=== PATIENT | female | born 1950 | race Caucasian/White ===

== ENCOUNTER → 2019-08-10 16:41 | Outpatient (CLI) | payer MEDICARE, OTHER, SELFPAY ==
[2019-08-10 17:13] LABS: INR 2.7 (0.9-1.3); Prothrombin Time 30.8 SECONDS (10.1-12.7)
== END ==
PROVIDERS: Family Provider Family Medicine; PCP Family Medicine; Referring Provider Pharmacist; Visit Provider Pharmacist
DX: Z79.01 Long term (current) use of anticoagulants (principal)
CPT/HCPCS: 36415; 85610

== ENCOUNTER 2019-12-08 20:56 | Emergency (ER) | payer MEDICARE, OTHER, SELFPAY ==
[2019-12-08 21:01] VITALS: BP 125/84; PULSE 101; RESP 18; O2SAT 97
[2019-12-08 21:16] LABS: INR 2.5 (0.9-1.3); Prothrombin Time 28.4 SECONDS (10.1-12.7)
--- NOTE | 2019-12-08 21:38 | ED.WOUNDLAC ---
HPI - Wound/Laceration General Chief Complaint: Wound/Laceration Stated Complaint: cut left hand Time Seen by Provider: 12/08/19 21:03 Source: patient Mode of arrival: Ambulatory Limitations: no limitations History of Present Illness HPI narrative: 69-year-old female nonsmoker with history of AFib on Coumadin presents with her and a chief complaint of an accidental laceration on the palm of her left hand 2 days ago while using a sharp knife. She presents today because despite her best efforts it continues to ooze and soak through whenever dressing she attempts to put on. Her tetanus is current. She denies any pain. She denies systemic findings such as dizziness, weakness or lightheadedness. Onset (ago): day(s) Extremity Location: Left: hand Body four view annotation: 1. Place: home Patient tetanus UTD: Yes Context: accidental Associated symptoms: none Treatments prior to arrival: bandage Related Data Home Medications Medication Instructions Recorded Confirmed atorvastatin [Lipitor] 20 mg PO HS #30 tab 12/26/15 buspirone 15 mg PO QDAY #0 tab 12/26/15 cholecalciferol (vitamin D3) 1 tab PO QDAY #0 tab 12/26/15 [Vitamin D3] diltiazem HCl 300 mg PO QDAY #0 cap 12/26/15 hydrochlorothiazide 25 mg PO QDAY #0 tab 12/26/15 metformin [Glucophage XR] 500 mg PO BID #0 12/26/15 metoprolol succinate 100 mg PO QDAY #0 ter 12/26/15 telmisartan 40 mg PO QDAY #0 tab 12/26/15 alprazolam 0.25 mg PO Q8H #0 08/12/16 warfarin [Coumadin] 2.5 mg PO QDAY #0 08/12/16 Previous Rx's Medication Instructions Recorded omeprazole 40 mg OR QAM #30 cap 03/11/16 sucralfate 1 gm PO BID #60 tab 03/11/16 ciprofloxacin HCl [Cipro] 500 mg PO BID #14 tab 08/12/16 Allergies Allergy/AdvReac Type Severity Reaction Status Date / Time captopril [CAPTOPRIL] Allergy Severe COUGH Verified 12/08/19 21:48 meperidine [From DEMEROL] Allergy Intermediate ITCHING Verified 12/08/19 21:48 AND ANXIETY Review of Systems Constitutional Constitutional: Denies chills, Denies fatigue, Denies fever(s), Denies frequent falls, Denies lethargy and Denies weakness Eyes Eyes: Denies change in vision, Denies eye discharge, Denies irritation and Denies loss of vision ENT Ears, Nose, Mouth, and Throat: Denies change in voice, Denies dizziness, Denies neck pain, Denies sore throat and Denies throat swelling Cardiovascular Cardiovascular: Denies chest pain, Denies irregular heart rhythm, Denies lightheadedness, Denies palpitations, Denies dyspnea, Denies dyspnea on exertion and Denies orthopnea Respiratory Respiratory: Denies cough, Denies dyspnea, Denies dyspnea on exertion and Denies wheezing Gastrointestinal Gastrointestinal: Denies abdominal pain, Denies change in bowel habits, Denies diarrhea, Denies nausea and Denies vomiting Musculoskeletal Musculoskeletal: Denies neck pain and Denies numbness Integumentary/Breasts Skin/Breast: Denies pruritus, Denies erythema, Denies rash and Reports wounds Neurologic Neurologic: Denies behavioral changes, Denies confusion, Denies dizziness, Denies frequent falls, Denies loss of vision, Denies numbness and Denies weakness Psychiatric Psychiatric: Denies anxiety, Denies behavioral changes, Denies confusion, Denies depression, Denies homicidal ideation and Denies suicidal ideation Endocrine Endocrine: Denies fatigue, Denies flushing and Denies palpitations Hematologic/Lymphatic Hematologic/Lymphatic: Denies easy bruising Allergic/Immunologic Allergic/Immunologic: Denies urticaria, Denies throat swelling and Denies wheezing Patient History alcohol intake frequency: 0-2 drinks per day Exam Narrative Exam Narrative: GEN: AOx3 and in mild distress EYES: Pupils are equal, round, and reactive to light and accommodation. Extraoccular muscles are intact bilaterally. There is no subconjunctival hemorrhage or exudate. CHEST: Lungs are clear to auscultation bilaterally and free of wheezes, rales, or rhonchi. Heart rate is regular rhythm, there are no murmurs, clicks, rubs, or gallops. There is no chest wall tenderness. ABD: Abdomen is soft and nontender. There is no guarding or rebound. Bowel sounds are normal in all 4 quadrants. There is no mass or organomegaly. EXT: Full painless ROM of all extremities with no loss of sensation or strength. SKIN: 0.5cm x 0.5cm avulsion laceration on left thenar emminence. Slow bleeding easily stopped with pressure. Superficial with skin loss. No muscle exposure. Initial Vital Signs Initial Vital Signs: Vital Signs Pulse Rate 101 H 12/08/19 21:01 Respiratory Rate 18 12/08/19 21:01 Blood Pressure 125/84 12/08/19 21:01 Pulse Oximetry 97 12/08/19 21:01 Procedures Laceration Repair Laceration 1: Site: hand Side (If applicable): left Size (cm): 0.5 Description: other Depth: simple, single layer Local Anesthetic: lidocaine 1% and with epi Amount of anesthesia used (mL): 3 Pre-repair: wound explored and irrigated extensively Skin layer closed with: other (bleeding easily controlled) Size (cm): 4-0 Number of sutures: 1 Course Orders Ordered: ED Orders 12/08/19 21:04 Prothrombin Time INR Stat Vital Signs Vital signs: Vital Signs - 8 hr 12/08/19 21:01 Pulse Rate 101 H Respiratory Rate 18 Blood Pressure 125/84 Pulse Oximetry 97 MDM - Wound/Laceration Lab Data Labs: Lab Results 12/08/19 Range/Units 21:04 PT 28.4 H (10.1-12.7) SECONDS INR 2.5 H (0.9-1.3) Discharge Plan Departure Patient Disposition: Home Clinical Impression: Avulsion of skin Laceration of hand, left Qualifiers: Encounter type: initial encounter Foreign body presence: without foreign body Qualified Code(s): S61.412A - Laceration without foreign body of left hand, initial encounter Discharge Date/Time: 12/08/19 22:20 Instructions: DI for Laceration Repair Activity Restrictions/Additional Instructions: *You have been diagnosed with [left hand avulsion laceration with ongoing bleeding] *What to do: *Continue to take medications as directed *Follow up the [facility] Resource Line, call tomorrow to get established with a provider and let them know were seen in the Emergency Department and we want you to be seen in follow up. *Return to ER if you should have any new, worsening or concerning symptoms Please keep the wound clean and dry to the best of your ability. Please monitor for signs of infection such as redness to the skin or increasing pain. Have the sutures removed by your doctor in about 5 days. If you are unable to get into your doctor, we would be happy to remove the sutures in that same timeframe. Prescriptions: No Action telmisartan 40 MG tablet 40 mg PO QDAY Qty: 0 RF: 0 atorvastatin [Lipitor] 20 MG tablet 20 mg PO HS Qty: 30 RF: 0 metoprolol succinate 100 MG tablet extended release 24 hr 100 mg PO QDAY Qty: 0 RF: 0 diltiazem HCl 300 MG capsule,extended release 24hr 300 mg PO QDAY Qty: 0 RF: 0 hydrochlorothiazide 25 MG tablet 25 mg PO QDAY Qty: 0 RF: 0 metformin [Glucophage XR] 500 MG tablet extended release 24 hr 500 mg PO BID Qty: 0 RF: 0 buspirone 15 MG tablet 15 mg PO QDAY Qty: 0 RF: 0 cholecalciferol (vitamin D3) [Vitamin D3] 2,000 UNIT tablet 1 tab PO QDAY Qty: 0 RF: 0 omeprazole 40 MG capsule,delayed release(DR/EC) 40 mg OR QAM Qty: 30 RF: 0 sucralfate 1 GM tablet 1 gm PO BID Qty: 60 RF: 0 warfarin [Coumadin] 2.5 MG tablet 2.5 mg PO QDAY Qty: 0 RF: 0 alprazolam 0.25 MG tablet 0.25 mg PO Q8H Qty: 0 RF: 0 ciprofloxacin HCl [Cipro] 500 MG tablet 500 mg PO BID Qty: 14 RF: 0 Referrals: [facility] [Outside] Omaira Kc MD [Primary Care Provider] -
[2019-12-08] MEDS: LIDOCAINE 1% W/EPI 30 ML (21:51)
== END 2019-12-08 22:20 | disposition home or self-care (01) ==
PROVIDERS: Emergency Provider Emergency Medicine; Family Provider Family Medicine; PCP Family Medicine
DX: S61.412A Laceration without foreign body of left hand, initial encounter (principal); W26.0XXA Contact with knife, initial encounter; I48.91 Unspecified atrial fibrillation; Z79.01 Long term (current) use of anticoagulants
CPT/HCPCS: 12001; 36415; 85610; 99283

== ENCOUNTER → 2020-05-05 13:19 | Outpatient (CLI) | payer MEDICARE, OTHER, SELFPAY ==
[2020-05-05] MEDS: COVID-19 VACC #1, MRNA(MOD) 100 MCG/0.5 ML VIAL IM (13:24)
== END ==
PROVIDERS: Family Provider Family Medicine; PCP Family Medicine; Visit Provider Internal Medicine
DX: Z23 Encounter for immunization (principal)
CPT/HCPCS: 0011A; 91301

== ENCOUNTER → 2020-06-02 15:59 | Outpatient (CLI) | payer MEDICARE, OTHER, SELFPAY ==
[2020-06-02] MEDS: COVID-19 VACC #2, MRNA(MOD) 100 MCG/0.5 ML VIAL IM (16:04)
== END ==
PROVIDERS: Family Provider Family Medicine; PCP Family Medicine; Visit Provider Internal Medicine
DX: Z23 Encounter for immunization (principal)
CPT/HCPCS: 0012A; 91301

== ENCOUNTER → 2022-01-04 08:15 | Outpatient (CLI) | payer MEDICARE, OTHER, SELFPAY ==
--- NOTE | 2022-01-04 08:20 | DI.RAD.S_ITS ---
PROCEDURE: XR KNEE RT 3V INDICATIONS: KNEE PAIN TECHNIQUE: 3 views of the knee were acquired. COMPARISON: None. FINDINGS: Bones: No acute fractures or dislocations. Severe tricompartmental degenerative changes of the right knee with significant joint space loss of both the medial and lateral femorotibial compartments. Joint space loss is more pronounced over the medial compartment. Prominent marginal osteophytes. Additionally, there is severe medial femorotibial compartment joint space narrowing of the left knee with near [id number] appearance. No suspicious bony lesions. Soft tissues: No joint effusion. No suspicious soft tissue calcifications. IMPRESSION: Right knee without acute osseous abnormalities. Severe tricompartmental degenerative changes of the right knee with significant joint space loss of both the right medial and lateral femorotibial compartments. Advanced degenerative changes of the left knee. Dictated by: Sascha Albarado M.D. on 01/04/2022 at 9:30 Approved by: Sascha Albarado M.D. on 01/04/2022 at 9:32
--- NOTE | 2022-01-04 08:20 | DI.RAD.S_ITS ---
PROCEDURE: XR KNEE LT 3V INDICATIONS: KNEE PAIN TECHNIQUE: 3 views of the knee were acquired. COMPARISON: None. FINDINGS: Bones: No fractures or dislocations. No suspicious bony lesions. Severe tricompartmental degenerative changes of the left knee with near complete joint space loss of the medial femorotibial compartment with [id number] appearance. There is also mild narrowing of the lateral femorotibial compartment. Prominent marginal osteophytes. Mild lateral deviation of the patella. Additionally, there are advanced degenerative changes of the right knee with significant joint space narrowing of both the medial and lateral femorotibial compartments. Soft tissues: No joint effusion. No suspicious soft tissue calcifications. IMPRESSION: Left knee without acute fracture or dislocation. Severe tricompartmental osteoarthrosis of the left knee with near complete joint space loss of the medial femorotibial compartment. Advanced degenerative changes of the right knee. Dictated by: Sascha Albarado M.D. on 01/04/2022 at 9:32 Approved by: Sascha Albarado M.D. on 01/04/2022 at 9:34
== END ==
PROVIDERS: Family Provider Family Medicine; PCP Internal Medicine; Referring Provider Internal Medicine; Visit Provider Internal Medicine
DX: M17.12 Unilateral primary osteoarthritis, left knee (principal); M25.561 Pain in right knee; M25.562 Pain in left knee; G89.29 Other chronic pain
CPT/HCPCS: 73562

== ENCOUNTER → 2023-04-14 09:27 | Outpatient (CLI) | payer MEDICARE, SELFPAY ==
[2023-04-14 11:17] LABS: Add Manual Diff / Slide Review NO; Basophils Absolute Auto 100 /uL (0-100); Basophils Percent Auto 1.1 % (0-2); Eosinophils Absolute Auto 100 /uL (0-450); Eosinophils Percent Auto 1.5 % (2-4); Hematocrit 39.2 % (36-46); Lymphocytes Absolute Auto 1800 /uL (1100-4500); Lymphocytes Percent Auto 24.2 % (25-40); Mean Corpuscular HGB Conc 33.3 % (30-36); Mean Corpuscular Hemoglobin 28.1 PG (26-34); Mean Corpuscular Volume 84.5 fL (80-100); Monocytes Absolute Auto 600 /uL (0-900); Monocytes Percent Auto 8.8 % (3-14); Neutrophils Absolute Auto 4800 /uL (1500-7000); Neutrophils Percent Auto 64.4 % (50-75); Platelet Count 300 X10^3/uL (150-400); Red Blood Cell Count 4.63 X10^6/uL (4.0-5.2); Red Cell Distribution Width 16.1 % (11.6-14.8); White Blood Cell Count 7.4 X10^3/uL (4.5-11.0)
[2023-04-14 11:35] LABS: Hemoglobin A1C% w Est Avg Glu 5.9 % (4.0-6.0)
[2023-04-14 11:39] LABS: INR 3.8 (0.9-1.3); Prothrombin Time 44.1 SECONDS (9.4-12.5)
[2023-04-14 11:40] LABS: Alanine Aminotransferase 24 IU/L (<35); Albumin 4.2 g/dL (3.5-5.0); Albumin Globulin Ratio 1.4 (1.0-2.8); Alkaline Phosphatase 60 U/L (38-126); Aspartate Aminotransferase 25 IU/L (14-36); BUN Creatinine Ratio 30.9 (6-22); Bilirubin Total 0.7 mg/dL (0.2-1.3); Blood Urea Nitrogen 25 mg/dL (7-17); Carbon Dioxide 28 mmol/L (22-32); Chloride 99 mmol/L (98-107); Cholesterol 140 mg/dL (140-199); Estimated Glomerular Filt Rate > 60 mL/min (>60); Globulin 3.1 g/dL (1.7-4.1); Glucose 111 mg/dL (80-110); HDL Cholesterol 36 mg/dL (40-60); HEMOLYSIS < 15 (0-50); LDL Cholesterol Calculated 79 mg/dL (<100); Potassium 3.9 mmol/L (3.4-5.1); Sodium 137 mmol/L (137-145); Total Protein 7.3 g/dL (6.3-8.2); Triglycerides 127 mg/dL (35-150); Uric Acid 6.1 mg/dL (2.5-6.2)
[2023-04-14 12:08] LABS: TSH w/ Reflex to FT4 1.18 uIU/mL (0.47-4.68)
[2023-04-14 12:14] LABS: Ferritin 28 ng/mL (11-264)
[2023-04-16 14:12] LABS: Insulin Level Total 22.5 uIU/mL (2.6-24.9)
== END ==
PROVIDERS: Family Provider Family Medicine; PCP Family Medicine; Referring Provider Family Medicine; Visit Provider Family Medicine
DX: I48.91 Unspecified atrial fibrillation (principal); R73.9 Hyperglycemia, unspecified; R53.83 Other fatigue; E55.9 Vitamin D deficiency, unspecified; M10.9 Gout, unspecified
CPT/HCPCS: 36415; 80053; 80061; 82306; 82728; 83036; 83525; 84443; 84550; 85025; 85610; 86140

== ENCOUNTER → 2023-07-16 10:24 | Outpatient (CLI) | payer MEDICARE, SELFPAY | PROVIDERS: Family Provider Family Medicine; PCP Family Medicine; Visit Provider Family Medicine | DX: R22.31 Localized swelling, mass and lump, right upper limb (principal) | CPT/HCPCS: 87070; 87075; 87205 ==

== ENCOUNTER → 2023-07-24 08:04 | Outpatient (CLI) | payer MEDICARE, SELFPAY ==
--- NOTE | 2023-07-24 | DI.ECHO.S_ITS ---
[facility] : : [address] : : [place] : : [id number] : : Phone: [phone] Echocardiogram Report + + :Name: BASSEM COHEN Study Date: 07/24/2023 Height: 65 in : :[facility] ReadingLocation: Weight: 245 lb : : Gender: Female BSA: 2.2 m2 : :: 1950 Age: 73 yrs BP: 114/71 mmHg: :Reason For Study: ATRIAL FIBRILLATION : :Ordering Physician: ANJEL, : :DAMIÁN Performed By: Geraldine Sun : :Referring: DAMIÁN FRENCH : + + Interpretation Summary The left ventricle is normal in size and wall thickness. Left ventricular systolic function appears normal without focal wall motion abnormalities. The ejection fraction is estimated to be 55-60%. The right ventricle is borderline dilated. The right ventricular systolic function is normal. The right ventricular systolic pressure is estimated to be at least 35 mmHg based on an estimated right atrial pressure of 3 mm Hg. There is moderate biatrial enlargement. There is mild mitral regurgitation. There is mild aortic regurgitation. The aortic root is borderline dilated. The ascending aorta is mildly enlarged. Procedure: A two-dimensional transthoracic echocardiogram with color flow and Doppler was performed. The study quality was technically adequate. There is no prior echocardiogram noted for this patient. The patient was in atrial fibrillation with heart rates between 79-85 bpm during the exam. Left Ventricle: The left ventricle is normal in size and wall thickness. Left ventricular systolic function appears normal without focal wall motion abnormalities. The ejection fraction is estimated to be 55-60%. Diastolic function could not be accurately assessed due to atrial fibrillation. Right Ventricle: The right ventricle is borderline dilated. The right ventricular systolic function is normal. Atria: There is moderate biatrial enlargement. The right atrium is moderately dilated. There is no Doppler evidence for an interatrial shunt. Mitral Valve: The mitral valve leaflets appear mildly thickened, but open well. There is mild mitral regurgitation. Aortic Valve: The aortic valve is mildly calcified. The aortic valve is trileaflet. There is no aortic valve stenosis. There is mild aortic regurgitation. Tricuspid Valve: The tricuspid valve is normal in structure and function. There is mild tricuspid regurgitation. The right ventricular systolic pressure is estimated to be at least 35 mmHg based on an estimated right atrial pressure of 3 mm Hg. Pulmonic Valve: The pulmonic valve leaflets are thin and pliable; valve motion is normal. There is mild pulmonic regurgitation. Great Vessels: The aortic root is borderline dilated. The ascending aorta is mildly enlarged. The IVC is of normal diameter and collapses greater than 50% with a sniff. This suggests a low right atrial pressure of 3 mm Hg. Pericardium/ Pleura There is no pericardial effusion. There is no pleural effusion. MMode/2D Measurements & Calculations EPSS: 0.61 cm LVOT diam: 2.1 cm Ao root diam: 4.0 cm asc Aorta Diam: 3.9 cm Ao Arch Diam (Prox Trans): 3.2 cm LA A2 area: 32.1 cm2 RA long axis: 7.5 cm LA A4 area: 27.2 cm2 RA area: 30.1 cm2 LA length (vol): 7.0 cm RA vol: 102.7 ml LA vol: 106.5 ml RA : 47.6 ml/m2 LA vol index: 49.4 ml/m2 IVC diam: 1.9 cm RVD1 (basal): 4.0 cm TAPSE: 1.7 cm Doppler Measurements & Calculations Ao V2 max: 139.4 cm/sec LVOT Max Erik: 91.5 cm/sec Ao V2 mean: 100.9 cm/sec LV V1 max P.3 mmHg Ao max P.8 mmHg LV V1 VTI: 19.6 cm Ao mean P.4 mmHg MICHAEL(I,D): 2.7 cm2 Ao V2 VTI: 26.5 cm MICHAEL(V,D): 2.4 cm2 sev ratio: 0.74 MICHAEL indexed to BSA (cm^2/m^2): 1.2 MV E max erik: 99.1 cm/sec TR max erik: 283.4 cm/sec MV A max erik: 1.2 cm/sec TR max P.1 mmHg MV E/A: 86.2 PA V2 max: 110.7 cm/sec Med Peak E' Erik: 8.8 cm/sec PA V2 mean: 74.7 cm/sec E/E' med: 11.3 PA mean P.5 mmHg Lat Peak E' Erik: 12.8 cm/sec PA pr(Accel): 39.6 mmHg E/E' lat: 7.7 E/e' average: 9.5 MV dec time: 0.18 sec SV(LVOT): 70.7 ml Reading Physician:02:30 PM
== END ==
LOC: ECHO 08:05
PROVIDERS: Family Provider Family Medicine; PCP Family Medicine; Referring Provider Internal Medicine Cardiovascular Disease; Visit Provider Internal Medicine Cardiovascular Disease
DX: I08.3 Combined rheumatic disorders of mitral, aortic and tricuspid valves (principal); I48.91 Unspecified atrial fibrillation; I77.89 Other specified disorders of arteries and arterioles
CPT/HCPCS: 93306

== ENCOUNTER → 2024-02-20 15:01 | Outpatient (CLI) | payer MEDICARE, SELFPAY ==
--- NOTE | 2024-02-20 15:02 | DI.MG.S_ITS ---
BILATERAL DIGITAL SCREENING MAMMOGRAM 3D/2D WITH CAD: 02/20/2024 CLINICAL: Routine screening. Family history of breast cancer. Comparison is made to exams dated: 10/23/2020 mammogram, 08/13/2017 mammogram, and 07/17/2015 mammogram - Outside facility. The breasts are almost entirely fatty (category a/<25% glandular tissue). Current study was also evaluated with a Computer Aided Detection (CAD) system. There are benign post operative findings in both breasts. No significant masses, calcifications, or other findings are seen in either breast. There has been no significant interval change. IMPRESSION: BENIGN There is no mammographic evidence of malignancy. A 1 year screening mammogram is recommended. Based on the Tyrer Cuzick model (a risk assessment model) the patient's lifetime risk is 5.7% and her 10 year risk is 3.9%. According to the ACR, ACS, and NCCN guidelines, an annual breast MRI exam along with mammogram is recommended if the patient's lifetime risk is 20% or greater. This exam was interpreted at Station ID: [id number]. NOTE: For mammograms, a report in lay terms will be sent to the patient. Approximately 15% of breast malignancies will not be visualized mammographically. In the management of a palpable breast mass, a negative mammogram must not discourage biopsy of a clinically suspicious lesion. Electronically Signed By: Yuki Anthony M.D., Ph.D. edi/melony:02/21/2024 00:38:18 letter sent: Normal Exam ACR BI-RADS Category 2: Benign
== END ==
PROVIDERS: Family Provider Family Medicine; PCP Family Medicine; Referring Provider Family Medicine; Visit Provider Family Medicine
DX: Z12.31 Encounter for screening mammogram for malignant neoplasm of breast (principal); R92.313 Mammographic fatty tissue density, bilateral breasts; Z80.3 Family history of malignant neoplasm of breast
CPT/HCPCS: 77063; 77067

== ENCOUNTER → 2024-03-12 10:48 | Outpatient (CLI) | payer MEDICARE, SELFPAY | PROVIDERS: Family Provider Family Medicine; PCP Family Medicine; Referring Provider Family Medicine; Visit Provider Family Medicine | DX: E66.01 Morbid (severe) obesity due to excess calories (principal); M85.89 Other specified disorders of bone density and structure, multiple sites; Z68.41 Body mass index [BMI] 40.0-44.9, adult ==

== ENCOUNTER → 2024-03-15 12:57 | Outpatient (CLI) | payer MEDICARE, SELFPAY ==
--- NOTE | 2024-03-15 12:57 | DI.RAD.S_ITS ---
PROCEDURE: XR DEXA AXIAL SKELETON INDICATIONS: Bone density screening COMPARISON: None. FINDINGS: Lumbar Spine (L1-L2): Bone mineral density 1.219 g/cm2, T score 2.2. Left Hip: Bone mineral density 0.732 g/cm2, T score -1.7. Left Femoral Neck: Bone mineral density 0.598 g/cm2, T score -2.3. Left Forearm: Bone mineral density 0.618 g/cm2, T score -1.3. Fracture Risk Calculation (when applicable): 10-year fracture risk of a major osteoporotic fracture 12% and of a hip fracture 2.7%. (T score greater or equal to -1.0 to: NORMAL) (T score from -1.1 to -2.4: OSTEOPENIA) (T score less than or equal to -2.5: OSTEOPOROSIS) IMPRESSION: 1. By WHO criteria, patient has osteopenia. 2. 10-year fracture risk of a major osteoporotic fracture 12% and of a hip fracture 2.7%. Follow-up guidelines as follows: Osteoporosis: Consider a repeat DEXA and Vertebral Fracture Assessment (VFA) exam in 2 years or sooner if medically necessary, to reassess this patient's status. Osteopenia: Consider a repeat DEXA in 2-3 years to reassess this patient's status, or if there is a new clinical indication. Normal: Consider a repeat DEXA in 5 years or sooner, or if there is a new clinical indication. All treatment decisions require clinical judgment and consideration of individual patient factors, including patient preferences, comorbidities, previous drug use, risk factors not captured in the FRAX model (e.g., frailty, falls, vitamin D deficiency, increased bone turnover, interval significant decline in bone density ) and possible under- or over-estimation of fracture risk by FRAX. In addition, the NOF Guide recommends that FDA-approved medical therapies be considered in postmenopausal women and men age >= 50 years with a: * Hip or vertebral (clinical or morphometric) fracture * T-score of <=-2.5 at the spine or hip * Ten-year fracture probability by FRAX of >= 3% for hip fracture or >=20% for major osteoporotic fracture. People with diagnosed cases of osteoporosis or at high risk for fracture should have regular bone mineral density tests. For patients eligible for Medicare, routine testing is allowed once every 2 years. The testing frequency can be increased to one year for patients who have rapidly progressing disease, those who are receiving or discontinuing medical therapy to restore bone mass, or have additional risk factors. Approved by: Jero Hernandez M.D. on 03/15/2024 at 16:49
== END ==
LOC: RAD 12:57
PROVIDERS: Family Provider Family Medicine; PCP Family Medicine; Referring Provider Family Medicine; Visit Provider Family Medicine
DX: M85.89 Other specified disorders of bone density and structure, multiple sites (principal)
CPT/HCPCS: 77080; 77081

== ENCOUNTER → 2024-04-19 09:59 | Outpatient (CLI) | payer MEDICARE, SELFPAY ==
[2024-04-19 11:15] LABS: Hematocrit 38.3 % (36-46); Hemoglobin 12.6 g/dL (12.0-16.0); Mean Corpuscular HGB Conc 32.9 % (30-36); Mean Corpuscular Hemoglobin 27.7 PG (26-34); Mean Corpuscular Volume 84.3 fL (80-100); Platelet Count 343 X10^3/uL (150-400); Red Blood Cell Count 4.54 X10^6/uL (4.0-5.2); Red Cell Distribution Width 18.8 % (11.6-14.8); White Blood Cell Count 8.6 X10^3/uL (4.5-11.0)
[2024-04-19 11:36] LABS: Hemoglobin A1C% w Est Avg Glu 5.3 % (4.0-6.0)
[2024-04-19 11:44] LABS: Alanine Aminotransferase 30 IU/L (<35); Albumin 4.2 g/dL (3.5-5.0); Albumin Globulin Ratio 1.8 (1.0-2.8); Alkaline Phosphatase 75 U/L (38-126); Aspartate Aminotransferase 25 IU/L (14-36); BUN Creatinine Ratio 30.5 (6-22); Bilirubin Total 0.8 mg/dL (0.2-1.3); Blood Urea Nitrogen 25 mg/dL (7-17); Calcium 9.5 mg/dL (8.4-10.2); Carbon Dioxide 28 mmol/L (22-32); Chloride 100 mmol/L (98-107); Cholesterol 143 mg/dL (140-199); Estimated Glomerular Filt Rate > 60 mL/min (>60); Globulin 2.3 g/dL (1.7-4.1); Glucose 92 mg/dL (80-110); HDL Cholesterol 47 mg/dL (40-60); HEMOLYSIS < 15 (0-50); LDL Cholesterol Calculated 66 mg/dL (<100); Sodium 137 mmol/L (137-145); Total Protein 6.5 g/dL (6.3-8.2); Triglycerides 152 mg/dL (35-150); Uric Acid 4.8 mg/dL (2.5-6.2)
[2024-04-19 12:11] LABS: TSH w/ Reflex to FT4 1.75 uIU/mL (0.47-4.68)
[2024-04-19 12:17] LABS: Ferritin 45 ng/mL (11-264)
[2024-04-20 04:36] LABS: CRP, High Sensitivity 1.21 mg/L (0.00-3.00)
[2024-04-20 16:08] LABS: Insulin Level Total 13.7 uIU/mL (2.6-24.9)
== END ==
PROVIDERS: Family Provider Family Medicine; PCP Family Medicine; Referring Provider Family Medicine; Visit Provider Family Medicine
DX: Z51.81 Encounter for therapeutic drug level monitoring (principal); R73.03 Prediabetes; I48.91 Unspecified atrial fibrillation; E66.01 Morbid (severe) obesity due to excess calories; I10 Essential (primary) hypertension; M10.9 Gout, unspecified; Z79.01 Long term (current) use of anticoagulants
CPT/HCPCS: 36415; 80053; 80061; 82728; 83036; 83525; 84443; 84550; 85027; 86140

== ENCOUNTER 2024-05-08 11:07 | Emergency (ER) | payer MEDICARE, SELFPAY ==
[2024-05-08 11:11] VITALS: BP 142/82; PULSE 93; RESP 18; TEMP 36.6; O2SAT 98; BMI 40.5
--- NOTE | 2024-05-08 11:23 | ED_ITS ---
<Statement entered by Chan Peterson DO - 05/08/24 15:13> Dr. Peterson: I was immediately available in the department for consultation. I did not actually see the patient. HPI - Wound/Laceration General Chief Complaint: Wound/Laceration Stated Complaint: car door hit leg bleeding, on blood thinners Time Seen by Provider: 05/08/24 11:15 Source: patient Mode of arrival: Ambulatory History of Present Illness HPI narrative: Ms. Perez is a very pleasant 73-year-old female past medical history of AFib anticoagulated on warfarin who presents to the emergency department for a left lower leg laceration that occurred just prior to arrival. Patient states she was rushing when she accidentally cut her lateral left lower leg on her car door while closing it. She has about a 5 cm laceration on the left lower extremity, bleeding is controlled at this time as patient used tape and gauze at home and immediately came to the emergency department. She denies any other injuries or pain. States that she is not up-to-date on her tetanus shot and will need it today. Related Data Home Medications Medication Instructions Recorded Confirmed cholecalciferol (vitamin D3) 50 1 tab PO QDAY #0 tabs 12/26/15 04/29/24 mcg (2,000 unit) tablet (Vitamin D3) coenzyme Q10 100 mg capsule 100 mg PO DAILY 04/29/24 04/29/24 magnesium chelate, malate mg PO 04/29/24 04/29/24 urolithin A PO 04/29/24 04/29/24 Previous Rx's Medication Instructions Recorded metoprolol succinate 100 mg 100 mg PO BID #180 tabs 09/29/23 tablet,extended release 24 hr metoprolol succinate 50 mg 50 mg PO BID #180 tabs 09/29/23 tablet,extended release 24 hr omeprazole 20 mg capsule,delayed 20 mg PO DAILY #90 caps 09/29/23 release rosuvastatin 40 mg tablet 40 mg PO DAILY #90 tabs 09/29/23 telmisartan 40 mg tablet 40 mg PO QDAY #90 tabs 09/29/23 warfarin 2.5 mg tablet 2.5 mg PO 4XW #48 tabs 10/02/23 warfarin 5 mg tablet 5 mg PO 3XW #36 tabs 10/02/23 allopurinol 300 mg tablet 300 mg PO DAILY #90 tabs 12/05/23 semaglutide 2 mg/dose (8 mg/3 mL) 2 mg (0.75 mL) SUBCUT QWEEK #9 mL 02/27/24 subcutaneous pen injector buspirone 15 mg tablet 15 mg PO QDAY #90 tabs 03/08/24 diltiazem HCl 300 mg 300 mg PO QDAY #90 caps 03/08/24 capsule,extended release 24 hr hydrochlorothiazide 25 mg tablet 25 mg PO QDAY #90 tabs 03/08/24 metformin 500 mg tablet,extended 500 mg PO DAILY #90 tabs 05/05/24 release 24 hr Allergies Allergy/AdvReac Type Severity Reaction Status Date / Time meperidine [From DEMEROL] Allergy Intermediate ITCHING Verified 04/29/24 15:29 AND ANXIETY ciprofloxacin [From Cipro] AdvReac Severe pain Verified 04/29/24 15:29 captopril [CAPTOPRIL] AdvReac Mild COUGH Verified 04/29/24 15:29 Review of Systems Review of Systems ROS Unobtainable: All systems reviewed & are unremarkable except as noted in HPI and below Patient History Medical History Osteoarthritis of right hip Osteoarthritis of knees, bilateral Gout History of GI bleed (~2015) Essential hypertension Obesity, Class III, BMI 40-49.9 (morbid obesity) Atrial fibrillation with RVR Social History Smoking Status: Former smoker Tobacco: How many years used: 20 alcohol intake: current (1 drink per month ) substance use type: marijuana (cannabis gummies and vape ) Smoking Status: Former smoker tobacco type: vaping alcohol intake frequency: 0-2 drinks per day Exam Narrative Exam Narrative: GENERAL: 73 year old patient appears stated age. Well-developed patient, in no acute distress. HEAD: Atraumatic. Normocephalic. CARDIOVASCULAR: Regular rate. Strong DP and PT pulses bilaterally. Brisk capillary refill on the toes. RESPIRATORY: ?Nonlabored respirations. ?Speaking in clear, full sentences. EXTREMITIES: Approximately 5 cm curved laceration on the left anterior lateral angel. Minimal bleeding on exam. No obvious foreign bodies or contamination. No tenderness to palpation of the anterior left tibia. NEURO: AOx3. ?Clear speech. ?Moves all 4 extremities appropriately. Sensation intact to light touch distal and proximal to the wound. SKIN: No rash or erythema of visible areas except for laceration on LLE described above. Initial Vital Signs Initial Vital Signs: Vital Signs Temperature 98 F 05/08/24 11:11 Pulse Rate 93 H 05/08/24 11:11 Respiratory Rate 18 05/08/24 11:11 Blood Pressure 142/82 H 05/08/24 11:11 Pulse Oximetry 98 05/08/24 11:11 Oxygen Delivery Method Room Air 05/08/24 11:11 Procedures Laceration Repair Laceration 1: Time of procedure: 11:15 Site: lower extremity Side (If applicable): left Size (cm): 5 Description: linear (semi [place]) Depth: simple, single layer Local Anesthetic: lidocaine 1% and with epi Amount of anesthesia used (mL): 7 Pre-repair: wound explored, irrigated extensively (cleansed with betadine) and deep structures intact Skin layer closed with: nylon Skin layer suture size: 4-0 Number of sutures: 9 Technique: simple, interrupted Course Orders Ordered: Discontinued Medications Bacitracin (Bacitracin Oint 0.9 Gm Pckt) 1 applic TOP NOW ONE Stop: 05/08/24 11:57 Last Admin: 05/08/24 11:59 Dose: 1 applic Documented By: ABDIEL Diphtheria/Tetanus/Acell Pertussis (Tet,Diph,Pertuss(Acell),Vac/Pf 0.5 Ml Syringe) 0.5 ml IM .ONCE ONE Stop: 05/08/24 11:23 Last Admin: 05/08/24 11:27 Dose: 0.5 ml Documented By: ABDIEL Lidocaine/Epinephrine (Lidocaine 1% W/Epi 20ml) 10 ml INJ INTRA-OP ONE Stop: 05/08/24 11:23 Last Admin: 05/08/24 11:27 Dose: 10 ml Documented By: ABDIEL Vital Signs Vital signs: Vital Signs - 8 hr 05/08/24 11:11 Temperature 98 F Pulse Rate 93 H Respiratory Rate 18 Blood Pressure 142/82 H Pulse Oximetry 98 Oxygen Delivery Method Room Air MDM - Wound/Laceration Medical Records Attestation: I reviewed the patient's medical records. MDM Narrative Medical decision making narrative: 73-year-old female past medical history of AFib anticoagulated on warfarin who presents to the emergency department for a left lower leg laceration that occurred just prior to arrival. Differential diagnosis includes but is not limited to laceration, flap, avulsion, bleeding on anticoagulation, etc. On exam the patient is in no acute distress, nontoxic appearing, vital signs appropriate. She has a 5 cm laceration on the left lower extremity. She is agreeable to clothing worker with lidocaine and epinephrine, cleansing irrigation and suture repair. We will update Tdap at this time. Patient tolerated laceration repair extremely well, wound was cleansed extensively irrigated with diluted Betadine, repaired using 9 simple interrupted sutures. Wound was covered with bacitracin and a nonadherent dressing. Advised sutures be removed in 8-10 days, discussed signs and symptoms of wound infection to return to the emergency department immediately for. Discussed proper wound care. Patient verbalized understanding of all information and is agreeable to the plan, her is here to drive her home, she is stable for discharge home. Discharge Plan Departure Patient Disposition: Home Clinical Impression: Laceration of left leg Qualifiers: Encounter type: initial encounter Qualified Code(s): S81.812A - Laceration without foreign body, left lower leg, initial encounter Instructions: DI for Laceration Repair Activity Restrictions/Additional Instructions: Today you had a laceration to your left lower leg. We have placed 9 sutures. They need to be removed in 8-10 days. You may do this in your doctor's office, the [id number], or here if necessary. Please keep the dressing on your wound clean, dry, and intact for the next 24 hours. After this time, you may remove the dressing and gently clean the wound with soap and water, then pat dry. Keep the wound clean and covered. Avoid soaking the wound in any water such as a bath, pool, or the ocean. If you develop any signs of wound infection such as increased redness, pus drain age, streaking redness, or fevers, please return to the ER immediately for evaluation. Once sutures are removed and the wound has healed, apply sunscreen daily to reduce the appearance of scars. We updated your tetanus shot today. (If you do not have a PCP you can call [phone]. ?to schedule an appointment with an [facility] Primary Care Provider) IF YOU DEVELOP ANY NEW OR WORSENING SYMPTOMS, RETURN TO THE ER! Please read the attached instructions, they highlight more specific treatments and interventions for you at home. Thank you for letting me participate in your care, Lisa Rae PA-C Prescriptions: No Action cholecalciferol (vitamin D3) [Vitamin D3] 2,000 UNIT tablet 1 tab PO QDAY Qty: 0 metoprolol succinate 50 mg tablet extended release 24 hr 50 mg PO BID Qty: 180 1RF telmisartan 40 mg tablet 40 mg PO QDAY Qty: 90 1RF omeprazole 20 mg capsule,delayed release(DR/EC) 20 mg PO DAILY Qty: 90 1RF rosuvastatin 40 mg tablet 40 mg PO DAILY Qty: 90 1RF metoprolol succinate 100 mg tablet extended release 24 hr 100 mg PO BID Qty: 180 1RF warfarin 5 mg tablet 5 mg PO 3XW Qty: 36 3RF Protocol: Dose Management Condition: Friday Dose/Route: 2.5 mg Instruction: 1 x 2.5 mg tablet Condition: Friday Dose/Route: 5 mg Instruction: 1 x 5 mg tablet Condition: Friday Dose/Route: 2.5 mg Instruction: 1 x 2.5 mg tablet Condition: Friday Dose/Route: 2.5 mg Instruction: 1 x 2.5 mg tablet Condition: Dose/Route: 5 mg Instruction: 1 x 5 mg tablet Condition: Friday Dose/Route: 2.5 mg Instruction: 1 x 2.5 mg tablet Condition: Friday Dose/Route: 5 mg Instruction: 1 x 5 mg tablet Protocol Text: Adjustment Start Date: Friday04/12/24 INR Value: 3.2 INR Date: 04/12/24 Recheck Date: 05/10/24 Rx Instructions: Take 1 tablet (5mg) total on Friday, and Friday; or as directed. warfarin 2.5 mg tablet 2.5 mg PO 4XW Qty: 48 3RF Protocol: Dose Management Condition: Friday Dose/Route: 2.5 mg Instruction: 1 x 2.5 mg tablet Condition: Friday Dose/Route: 5 mg Instruction: 1 x 5 mg tablet Condition: Friday Dose/Route: 2.5 mg Instruction: 1 x 2.5 mg tablet Condition: Friday Dose/Route: 2.5 mg Instruction: 1 x 2.5 mg tablet Condition: Dose/Route: 5 mg Instruction: 1 x 5 mg tablet Condition: Friday Dose/Route: 2.5 mg Instruction: 1 x 2.5 mg tablet Condition: Friday Dose/Route: 5 mg Instruction: 1 x 5 mg tablet Protocol Text: Adjustment Start Date: Friday04/12/24 INR Value: 3.2 INR Date: 04/12/24 Recheck Date: 05/10/24 Rx Instructions: Take 1 tablet (2.5mg) total on Friday, Friday, Friday and Friday; or as directed. allopurinol 300 mg tablet 300 mg PO DAILY Qty: 90 1RF semaglutide 2 mg/dose (8 mg/3 mL) pen injector 2 mg SUBCUT QWEEK Qty: 9 3RF buspirone 15 mg tablet 15 mg PO QDAY Qty: 90 1RF hydrochlorothiazide 25 mg tablet 25 mg PO QDAY Qty: 90 1RF diltiazem HCl 300 mg capsule,extended release 24hr 300 mg PO QDAY Qty: 90 1RF metformin 500 mg tablet extended release 24 hr 500 mg PO DAILY Qty: 90 1RF magnesium chelate, malate 125 mg magnesium capsule PO urolithin A PO coenzyme Q10 100 mg capsule 100 mg PO DAILY Referrals: Jennifer Avilez DO [Primary Care Provider] - Stand Alone Forms: Patient Portal/API/Survey
[2024-05-08] MEDS: TET,DIPH,PERTUSS(ACELL),VAC/PF 0.5 ML SYRINGE IM (11:27)
[2024-05-08] MEDS: LIDOCAINE 1% W/EPI 20ML 10 ML INJ (11:27)
[2024-05-08] MEDS: BACITRACIN OINT 0.9 GM PCKT 1 APPLIC TOP (11:59)
== END 2024-05-08 12:15 | disposition home or self-care (01) ==
PROVIDERS: Emergency Provider Physician Assistant; Family Provider Family Medicine; PCP Family Medicine
DX: S81.812A Laceration without foreign body, left lower leg, initial encounter (principal); I48.91 Unspecified atrial fibrillation; W26.8XXA Contact with other sharp object(s), not elsewhere classified, initial encounter; Z79.01 Long term (current) use of anticoagulants; Z23 Encounter for immunization
CPT/HCPCS: 12002; 90471; 99284; 90715

== ENCOUNTER 2024-09-09 15:10 | Emergency (ER) | payer MEDICARE, SELFPAY ==
[2024-09-09 15:26] VITALS: BP 126/59; PULSE 69; RESP 12; TEMP 36.6; O2SAT 94; BMI 41.1
--- NOTE | 2024-09-09 15:45 | PC.NURSE ---
Pressure dressing applied to knee, soaked dressing removed that patient had in place from home.
--- NOTE | 2024-09-09 16:11 | DI.RAD.S_ITS ---
PROCEDURE: XR KNEE LT 3V INDICATIONS: fall; lac bleeding on blood thinners TECHNIQUE: 3 views of the knee were acquired. COMPARISON: [facility], CR, XR KNEE LT 3V, 01/04/2022, 8:23. FINDINGS: Bones: No fractures or dislocations. No suspicious bony lesions. There is again seen moderate to severe degenerative disease in the medial and lateral compartments and mild degenerative disease in the patellofemoral compartment. No significant joint effusion. Soft tissues: No joint effusion. No suspicious soft tissue calcifications. IMPRESSION: Degenerative changes, no focal osseous lesion seen. Dictated by: Oskar Renee M.D. on 09/09/2024 at 16:52 Approved by: Oskar Renee M.D. on 09/09/2024 at 16:53
--- NOTE | 2024-09-09 16:15 | ED.WOUNDLAC ---
HPI - Wound/Laceration <Lisa Rae PA-C - Last Filed: 09/09/24 18:30> General Chief Complaint: Wound/Laceration Stated Complaint: fell on Lt knee, blood thinners Time Seen by Provider: 09/09/24 15:59 Source: patient and family Mode of arrival: Wheelchair History of Present Illness HPI narrative: Ms. Perez is a pleasant 74-year-old female with a past medical history of AFib on Coumadin, hypertension, prediabetes who presents to the emergency department for a left knee laceration that occurred prior to arrival. Tdap was updated 05/08/2024. Patient states she was at home, tripped on a cord and a belly flop down onto the ground hitting her left knee on the hardwood. She developed an immediate skin tear of the left knee with constant oozing of blood, no pulsatile bleeding. She denies any pain, did not hit her head. States that her left shoulder is feeling sore however this is chronic for her. Denies head trauma, LOC, vomiting. She ambulates independently, denies pain of the knee. Related Data Home Medications ?Medication ?Instructions ?Recorded ?Confirmed cholecalciferol (vitamin D3) 50 1 tab PO QDAY #0 tabs 12/26/15 08/03/24 mcg (2,000 unit) tablet (Vitamin D3) coenzyme Q10 100 mg capsule 100 mg PO DAILY 04/29/24 08/03/24 magnesium chelate, malate mg PO 04/29/24 08/03/24 urolithin A PO 04/29/24 08/03/24 Previous Rx's ?Medication ?Instructions ?Recorded warfarin 5 mg tablet 5 mg PO 3XW #36 tabs 10/02/23 semaglutide 2 mg/dose (8 mg/3 mL) 2 mg (0.75 mL) SUBCUT QWEEK #9 mL 02/27/24 subcutaneous pen injector diltiazem HCl 300 mg 300 mg PO QDAY #90 caps 03/08/24 capsule,extended release 24 hr metformin 500 mg tablet,extended 500 mg PO DAILY #90 tabs 05/05/24 release 24 hr telmisartan 40 mg tablet 40 mg PO QDAY #90 tabs 05/17/24 metoprolol succinate 100 mg 100 mg PO BID #180 tabs 03/03/25 tablet,extended release 24 hr metoprolol succinate 50 mg 50 mg PO BID #180 tabs 06/07/24 tablet,extended release 24 hr omeprazole 20 mg capsule,delayed 20 mg PO DAILY #90 caps 06/07/24 release rosuvastatin 40 mg tablet 40 mg PO DAILY #90 tabs 06/07/24 allopurinol 300 mg tablet 300 mg PO DAILY #30 tabs 07/23/24 progesterone micronized 100 mg 100 mg PO BEDTIME #90 caps 08/03/24 capsule warfarin 2.5 mg tablet 2.5 mg PO 4XW #48 tabs 08/10/24 buspirone 15 mg tablet 15 mg PO QDAY #90 tabs 08/27/24 hydrochlorothiazide 25 mg tablet 25 mg PO QDAY #90 tabs 08/27/24 hydrocodone 5 mg-acetaminophen 325 1 tab PO Q4-6H PRN pain #10 tabs 09/09/24 mg tablet Allergies Allergy/AdvReac Type Severity Reaction Status Date / Time meperidine (From DEMEROL) Allergy Intermediate ITCHING Verified 09/09/24 15:34 AND ANXIETY ciprofloxacin (From Cipro) AdvReac Severe pain Verified 09/09/24 15:34 captopril (CAPTOPRIL) AdvReac Mild COUGH Verified 09/09/24 15:34 Review of Systems <Lisa Rae PA-C - Last Filed: 09/09/24 18:30> Review of Systems ROS Unobtainable: All systems reviewed & are unremarkable except as noted in HPI and below Patient History <Lisa Rae PA-C - Last Filed: 09/09/24 18:30> Medical History Atrial fibrillation with RVR Osteoarthritis of right hip Osteoarthritis of knees, bilateral Gout History of GI bleed (~2015) Essential hypertension Obesity, Class III, BMI 40-49.9 (morbid obesity) Social History Tobacco: How many years used: 20 alcohol intake: current substance use type: marijuana tobacco type: vaping alcohol intake frequency: 0-2 drinks per day Exam <Lisa Rae PA-C - Last Filed: 09/09/24 18:30> Narrative Exam Narrative: GENERAL: 74 year old patient appears stated age. Well-developed patient, in no acute distress. HEAD: Atraumatic. Normocephalic. EYES: Extraocular motions intact. No scleral icterus. No injection or drainage. ENT: Nose without bleeding, purulent drainage. NECK: Trachea midline. Cervical ROM intact. CARDIOVASCULAR: Regular rate RESPIRATORY: ?Nonlabored respirations. ?Speaking in clear, full sentences. GASTROINTESTINAL: Abdomen soft, non-tender, nondistended. EXTREMITIES: Left anterior knee with superficial skin tears and deeper central laceration with constant oozing of blood, no pulsatile bleeding. About 4 cm. Left knee range of motion intact. NEURO: AOx3. ?Clear speech. ?Moves all 4 extremities appropriately. SKIN: Left Knee laceration described above. Initial Vital Signs Initial Vital Signs: Vital Signs Temperature 97.8 F 09/09/24 15:26 Pulse Rate 69 09/09/24 15:26 Respiratory Rate 12 09/09/24 15:26 Blood Pressure 126/59 L 09/09/24 15:26 Pulse Oximetry 94 09/09/24 15:26 Oxygen Delivery Method Room Air 09/09/24 15:26 <Marlon Shannon MD - Last Filed: 09/13/24 07:54> Initial Vital Signs Initial Vital Signs: Vital Signs Temperature 97.8 F 09/09/24 15:26 Pulse Rate 69 09/09/24 15:26 Respiratory Rate 12 09/09/24 15:26 Blood Pressure 126/59 L 09/09/24 15:26 Pulse Oximetry 94 09/09/24 15:26 Oxygen Delivery Method Room Air 09/09/24 15:26 Procedures <Lisa Rae PA-C - Last Filed: 09/09/24 18:30> Laceration Repair Laceration 1: Time of procedure: 17:39 Site: lower extremity (knee) Side (If applicable): left Size (cm): 4 Description: irregular Depth: simple, single layer and involves muscle layer Local Anesthetic: lidocaine 1% and with epi Amount of anesthesia used (mL): 6 Pre-repair: wound explored and irrigated extensively (Irrigated with diluted Betadine) Skin layer closed with: nylon Skin layer suture size: 3-0 Number of sutures: 4 Technique: simple, interrupted and horizontal mattress Subcutaneous layer closed with: vicryl Subcutaneous layer suture size: 4-0 Number of sutures: 2 Technique: simple, interrupted Course <Lisa Rae PA-C - Last Filed: 09/09/24 18:30> Orders Ordered: Discontinued Medications Hydrocodone Bitart/Acetaminophen (Hydrocodone/Acet 5/325 Tablet) 1 tab PO NOW ONE Stop: 09/09/24 17:42 Last Admin: 09/09/24 17:48 Dose: 1 tab Documented By: HODAN Bacitracin (Bacitracin Oint 0.9 Gm Pckt) 1 applic TOP NOW ONE Stop: 09/09/24 17:37 Last Admin: 09/09/24 17:49 Dose: 1 applic Documented By: HODAN Lidocaine/Epinephrine (Lidocaine 1% W/Epi 10ml) 8 ml SUBCUT NOW ONE Stop: 09/09/24 16:12 Last Admin: 09/09/24 16:20 Dose: 8 ml Documented By: HODAN Vital Signs Vital signs: Vital Signs - 8 hr 09/09/24 15:26 09/09/24 18:03 Temperature 97.8 F 98 F Pulse Rate 69 60 Respiratory Rate 12 20 Blood Pressure 126/59 L 123/67 Pulse Oximetry 94 98 Oxygen Delivery Method Room Air Room Air <Marlon Shannon MD - Last Filed: 09/13/24 07:54> Orders Ordered: Discontinued Medications Hydrocodone Bitart/Acetaminophen (Hydrocodone/Acet 5/325 Tablet) 1 tab PO NOW ONE Stop: 09/09/24 17:42 Last Admin: 09/09/24 17:48 Dose: 1 tab Documented By: HODAN Bacitracin (Bacitracin Oint 0.9 Gm Pckt) 1 applic TOP NOW ONE Stop: 09/09/24 17:37 Last Admin: 09/09/24 17:49 Dose: 1 applic Documented By: HODAN Lidocaine/Epinephrine (Lidocaine 1% W/Epi 10ml) 8 ml SUBCUT NOW ONE Stop: 09/09/24 16:12 Last Admin: 09/09/24 16:20 Dose: 8 ml Documented By: HODAN Vital Signs Vital signs: Vital Signs - 8 hr 09/09/24 15:26 09/09/24 18:03 Temperature 97.8 F 98 F Pulse Rate 69 60 Respiratory Rate 12 20 Blood Pressure 126/59 L 123/67 Pulse Oximetry 94 98 Oxygen Delivery Method Room Air Room Air MDM - Wound/Laceration <Lisa Rae PA-C - Last Filed: 09/09/24 18:30> Medical Records Attestation: I reviewed the patient's medical records. Imaging Data Left Knee X-Ray: Radiologist's Impression: PROCEDURE: XR KNEE LT 3V INDICATIONS: fall; lac bleeding on blood thinners TECHNIQUE: 3 views of the knee were acquired. COMPARISON: [facility], CR, XR KNEE LT 3V, 01/04/2022, 8:23. FINDINGS: Bones: No fractures or dislocations. No suspicious bony lesions. There is again seen moderate to severe degenerative disease in the medial and lateral compartments and mild degenerative disease in the patellofemoral compartment. No significant joint effusion. Soft tissues: No joint effusion. No suspicious soft tissue calcifications. IMPRESSION: Degenerative changes, no focal osseous lesion seen. Dictated by: Oskar Renee M.D. on 09/09/2024 at 16:52 Approved by: Oskar Renee M.D. on 09/09/2024 at 16:53 MDM Narrative Medical decision making narrative: 74-year-old female with a past medical history of AFib on Coumadin, hypertension, prediabetes who presents to the emergency department for a left knee laceration that occurred prior to arrival. Tdap was updated 05/08/2024. Differential diagnosis includes but is not limited to left knee laceration, skin tear, fracture, sprain, strain, etc. On exam patient is in no acute distress, nontoxic appearing, vital signs appropriate. Left lower extremity is neurovascularly intact, she has an anterior left knee laceration with constant oozing bleeding. We will obtain left knee x-ray, anesthetize, irrigate cleanse and repair wound. Wound anesthetized using lidocaine 1% with epinephrine. Wound was cleansed and irrigated extensively with diluted Betadine and saline. Two deep vicryl sutures were used for bleeding cessation. One large horizontal mattress suture was then used to better approximate the wound and 3 simple interrupted sutures were used for skin closure. Patient tolerated procedure well. Bacitracin, nonadherent dressing and a knee immobilizer was then placed for support. Discussed proper wound care, signs and symptoms of infection, rice therapy, suture removal in 10-14 days. Patient has a cane at home that she would like to use to walk rather than a walker or crutches. She verbalized understanding of all information, she is requesting pain medication, she can not take NSAIDs therefore recommended Tylenol, short course of hydrocodone-acetaminophen sent to pharmacy of choice. Discussed risks of narcotics. Patient verbalized understanding of all information is agreeable with the plan, she is stable for discharge home, her is here to drive her home. Discharge Plan Departure Patient Disposition: Home Clinical Impression: Ground-level fall Laceration of knee, left Qualifiers: Encounter type: initial encounter Qualified Code(s): S81.012A - Laceration without foreign body, left knee, initial encounter Instructions: DI for Laceration Repair Activity Restrictions/Additional Instructions: Dear Ms. Perez, Today you had a laceration to your left knee. We have placed 4 sutures. Three simple interrupted sutures and 1 horizontal mattress suture. They need to be removed in 10-14 days. You may do this in your doctor's office, the [id number], or here if necessary. Please keep the dressing on your wound clean, dry, and intact for the next 24 hours. After this time, you may remove the dressing and gently clean the wound with soap and water, then pat dry. Keep the wound clean and covered. Avoid soaking the wound in any water such as a bath, pool, or the ocean. If you develop any signs of wound infection such as increased redness, pus drainage, streaking redness, or fevers, please return to the ER immediately for evaluation. Once sutures are removed and the wound has healed, apply sunscreen daily to reduce the appearance of scars. Please use an [facility] wrap in the knee immobilizer to help prevent the sutures from opening. Please use RICE therapy for your pain in addition to acetaminophen. Rest the painful area. Ice the area of pain/swelling for at least 15 minutes, 4x a day. Compress the area of swelling using a brace, wrap, or splint if applied. Elevate the painful or swollen extremity by supporting it above the level of the heart with pillows when sitting or laying. You have been prescribed a short course of narcotic medications. These are potentially dangerous and addictive medications that should be used carefully. While on these medications you cannot drive or operate heavy machinery. Additionally, you cannot sign legal documents or perform any duties such as this. Many people get constipated on narcotic medications so it would be advisable to discuss stool softeners with the pharmacist when you corn picker your prescription. Please understand that we cannot provide further refills of narcotics or controlled substances through the ED and your pain management will need to be through your Primary Care Provider Please follow up with your primary care doctor within the next 2-3 days for ER follow-up. (If you do not have a PCP you can call [phone]. ?to schedule an appointment with an [facility] Primary Care Provider) IF YOU DEVELOP ANY NEW OR WORSENING SYMPTOMS, RETURN TO THE ER! Please read the attached instructions, they highlight more specific treatments and interventions for you at home. Thank you for letting me participate in your care, Lisa Rae PA-C Prescriptions: New hydrocodone-acetaminophen 5-325 mg tablet 1 tab PO Q4-6H PRN (Reason: pain) Qty: 10 0RF No Action cholecalciferol (vitamin D3) [Vitamin D3] 2,000 UNIT tablet 1 tab PO QDAY Qty: 0 warfarin 5 mg tablet 5 mg PO 3XW Qty: 36 3RF Protocol: Dose Management Condition: Friday Dose/Route: 2.5 mg Instruction: 1 x 2.5 mg tablet Condition: Friday Dose/Route: 5 mg Instruction: 1 x 5 mg tablet Condition: Friday Dose/Route: 2.5 mg Instruction: 1 x 2.5 mg tablet Condition: Friday Dose/Route: 2.5 mg Instruction: 1 x 2.5 mg tablet Condition: Dose/Route: 5 mg Instruction: 1 x 5 mg tablet Condition: Friday Dose/Route: 2.5 mg Instruction: 1 x 2.5 mg tablet Condition: Friday Dose/Route: 5 mg Instruction: 1 x 5 mg tablet Protocol Text: Adjustment Start Date: Friday08/16/24 INR Value: 2.3 INR Date: 08/16/24 Recheck Date: 10/04/24 Rx Instructions: Take 1 tablet (5mg) total on Friday, and Friday; or as directed. semaglutide 2 mg/dose (8 mg/3 mL) pen injector 2 mg SUBCUT QWEEK Qty: 9 3RF diltiazem HCl 300 mg capsule,extended release 24hr 300 mg PO QDAY Qty: 90 1RF metformin 500 mg tablet extended release 24 hr 500 mg PO DAILY Qty: 90 1RF telmisartan 40 mg tablet 40 mg PO QDAY Qty: 90 1RF omeprazole 20 mg capsule,delayed release(DR/EC) 20 mg PO DAILY Qty: 90 3RF rosuvastatin 40 mg tablet 40 mg PO DAILY Qty: 90 1RF metoprolol succinate 50 mg tablet extended release 24 hr 50 mg PO BID Qty: 180 1RF metoprolol succinate 100 mg tablet extended release 24 hr 100 mg PO BID Qty: 180 1RF allopurinol 300 mg tablet 300 mg PO DAILY Qty: 30 0RF warfarin 2.5 mg tablet 2.5 mg PO 4XW Qty: 48 3RF Protocol: Dose Management Condition: Friday Dose/Route: 2.5 mg Instruction: 1 x 2.5 mg tablet Condition: Friday Dose/Route: 5 mg Instruction: 1 x 5 mg tablet Condition: Friday Dose/Route: 2.5 mg Instruction: 1 x 2.5 mg tablet Condition: Friday Dose/Route: 2.5 mg Instruction: 1 x 2.5 mg tablet Condition: Dose/Route: 5 mg Instruction: 1 x 5 mg tablet Condition: Friday Dose/Route: 2.5 mg Instruction: 1 x 2.5 mg tablet Condition: Friday Dose/Route: 5 mg Instruction: 1 x 5 mg tablet Protocol Text: Adjustment Start Date: Friday08/16/24 INR Value: 2.3 INR Date: 08/16/24 Recheck Date: 10/04/24 Rx Instructions: Take 1 tablet (2.5mg) total on Friday, Friday, Friday and Friday; or as directed. hydrochlorothiazide 25 mg tablet 25 mg PO QDAY Qty: 90 0RF buspirone 15 mg tablet 15 mg PO QDAY Qty: 90 0RF magnesium chelate, malate 125 mg magnesium capsule PO urolithin A PO coenzyme Q10 100 mg capsule 100 mg PO DAILY progesterone micronized 100 mg capsule 100 mg PO BEDTIME Qty: 90 1RF Rx Instructions: Take 1 cap at night. If noticing breast soreness or fluid retention, increase to 2 caps at night. Referrals: Jennifer Avilez DO [Primary Care Provider, Medical] Stand Alone Forms: Patient Portal/API ED Sign-out <Marlon Shannon MD - Last Filed: 09/13/24 07:54> Cosign ED Attending Cosignature Attestation: I was immediately available in the department for consultation. ?This documentation has been reviewed and I agree with assessment and plan. Supervised by Marlon Shannon MD
[2024-09-09] MEDS: LIDOCAINE 1% W/EPI 10ML 8 ML SUBCUT (16:20)
--- NOTE | 2024-09-09 16:22 | PC.NURSE ---
Pt states mechanical GLF. Tripped on power cord and belly flopped to ground. Landed on left knee. 4cm deep laceration on left knee. Pt has full ROM. Denies hitting head and LOC. Takes warfarin. A&Ox4.
[2024-09-09] MEDS: HYDROCODONE/ACET 5/325 TABLET 1 TAB PO (17:48)
[2024-09-09] MEDS: BACITRACIN OINT 0.9 GM PCKT 1 APPLIC TOP (17:49)
--- NOTE | 2024-09-09 18:02 | PC.NURSE ---
Bacitracin applied to laceration repair. Wound dressed with nonstick gauze, padded gauze and coban wrap. Knee immobilizer placed. Pt tolerated well.
[2024-09-09 18:03] VITALS: BP 123/67; PULSE 60; RESP 20; TEMP 36.6; O2SAT 98
== END 2024-09-09 18:17 | disposition home or self-care (01) ==
PROVIDERS: Emergency Provider Physician Assistant; Family Provider Family Medicine; PCP Family Medicine
DX: S81.012A Laceration without foreign body, left knee, initial encounter (principal); W01.198A Fall on same level from slipping, tripping and stumbling with subsequent striking against other object, initial encounter
CPT/HCPCS: 12002; 73562; 99283; 99284

== ENCOUNTER 2024-10-01 10:00 | Emergency (ER) | payer MEDICARE, SELFPAY ==
[2024-10-01] VITALS (31 sets, daily range): BP systolic 92–139; BP diastolic 51–73; PULSE 68–96; RESP 8–24; TEMP 38.1; O2SAT 84–97; BMI 43.7
--- NOTE | 2024-10-01 10:09 | DI.RAD.S_ITS ---
PROCEDURE: XR HIP W PEL IF DONE RT 2V INDICATIONS: felt a pop bending over. TECHNIQUE: AP pelvis with lateral view(s) of the right hip(s). COMPARISON: None. FINDINGS: Bones: Dislocation of the right hip arthroplasty with superior dislocation of the femoral head component.. Pelvic ring appears intact. No suspicious bony lesions. Soft tissues: The visualized bowel gas pattern is normal. No suspicious soft tissue calcifications. IMPRESSION: Dislocated right femoral arthroplasty. Dictated by: Ephraim Jane M.D. on 10/01/2024 at 10:52 Approved by: Ephraim Jane M.D. on 10/01/2024 at 10:53
[2024-10-01] MEDS: HYDROMORPHONE 1 MG INJ IV ×2 (10:17→10:44)
--- NOTE | 2024-10-01 10:59 | ED.LOWEXIN ---
HPI - Extremity Injury (Lower) General Chief Complaint: Extremity Injury, Lower Stated Complaint: R hip injury Time Seen by Provider: 10/01/24 10:00 History of Present Illness HPI Narrative: 74-year-old woman with history of hypertension, diabetes atrial fibrillation anticoagulated with right hip replacement approximately a year ago at [facility], Dr Nazario. She had a spontaneous dislocation in May of this year was relocated with minimal difficulty. 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 Brought in by medics. Pain control has been difficult. She was given fentanyl and ketamine in the field, another 1mg of Dilaudid on arrival in the emergency department and still with significant discomfort. She is neurovascularly intact distally. No other injuries or concerns today Related Data Home Medications ?Medication ?Instructions ?Recorded ?Confirmed cholecalciferol (vitamin D3) 50 1 tab PO QDAY #0 tabs 12/26/15 08/03/24 mcg (2,000 unit) tablet (Vitamin D3) coenzyme Q10 100 mg capsule 100 mg PO DAILY 04/29/24 08/03/24 magnesium chelate, malate mg PO 04/29/24 08/03/24 urolithin A PO 04/29/24 08/03/24 Previous Rx's ?Medication ?Instructions ?Recorded warfarin 5 mg tablet 5 mg PO 3XW #36 tabs 10/02/23 semaglutide 2 mg/dose (8 mg/3 mL) 2 mg (0.75 mL) SUBCUT QWEEK #9 mL 02/27/24 subcutaneous pen injector diltiazem HCl 300 mg 300 mg PO QDAY #90 caps 03/08/24 capsule,extended release 24 hr metformin 500 mg tablet,extended 500 mg PO DAILY #90 tabs 05/05/24 release 24 hr telmisartan 40 mg tablet 40 mg PO QDAY #90 tabs 05/17/24 metoprolol succinate 100 mg 100 mg PO BID #180 tabs 06/07/24 tablet,extended release 24 hr metoprolol succinate 50 mg 50 mg PO BID #180 tabs 06/07/24 tablet,extended release 24 hr omeprazole 20 mg capsule,delayed 20 mg PO DAILY #90 caps 06/07/24 release rosuvastatin 40 mg tablet 40 mg PO DAILY #90 tabs 06/07/24 allopurinol 300 mg tablet 300 mg PO DAILY #30 tabs 07/23/24 progesterone micronized 100 mg 100 mg PO BEDTIME #90 caps 08/03/24 capsule warfarin 2.5 mg tablet 2.5 mg PO 4XW #48 tabs 08/10/24 hydrocodone 5 mg-acetaminophen 325 1 tab PO Q4-6H PRN pain #10 tabs 09/09/24 mg tablet buspirone 15 mg tablet 15 mg PO QDAY #90 tabs 09/16/24 hydrochlorothiazide 25 mg tablet 25 mg PO QDAY #90 tabs 09/16/24 testosterone 50 mg/5 gram (1 %) 0.14 tube transdermal QAM #150 09/16/24 transdermal gel grams Allergies Allergy/AdvReac Type Severity Reaction Status Date / Time meperidine (From DEMEROL) Allergy Intermediate ITCHING Verified 09/09/24 15:34 AND ANXIETY ciprofloxacin (From Cipro) AdvReac Severe pain Verified 09/09/24 15:34 captopril (CAPTOPRIL) AdvReac Mild COUGH Verified 09/09/24 15:34 Review of Systems Review of Systems Narrative: Pertinent positive and negative findings as per HPI Patient History Medical History Atrial fibrillation with RVR Osteoarthritis of right hip Osteoarthritis of knees, bilateral Gout History of GI bleed (~2015) Essential hypertension Obesity, Class III, BMI 40-49.9 (morbid obesity) Social History Smoking Status: Former smoker Tobacco: How many years used: 20 alcohol intake: current substance use type: marijuana Smoking Status: Former smoker tobacco type: vaping alcohol intake frequency: 0-2 drinks per day Exam Initial Vital Signs Initial Vital Signs: Vital Signs Temperature 100.5 F H 10/01/24 10:01 Pulse Rate 88 10/01/24 10:01 Respiratory Rate 19 10/01/24 10:01 Blood Pressure 134/63 10/01/24 10:01 Pulse Oximetry 92 10/01/24 10:01 Oxygen Delivery Method Room Air 10/01/24 10:01 General: Alert appropriate in no acute distress Cardiac: Slightly irregular but no murmurs, rate in the mid 80s Respiratory: Able to speak in full sentences, no obvious respiratory distress Skin: No obvious rashes, warm and dry Neurologic: Grossly intact no obvious asymmetries or abnormalities Psych: appropriate insight and affect, cooperative Extremity: Right leg is foreshortened and internally rotated, she is unable to move the hip. She is neurovascularly intact Procedures Orthopedic Joint Reduction Right prosthetic hip: Time of procedure: 11:51 Time Out Performed: Yes Side: right Joint Reduction Location: hip Analgesia: procedural sedation Amount of anesthesic used (mL): 100 Technique used: direct manipulation Post-reduction neuro exam: intact Post-reduction vascular: intact Post Reduction X-Ray Obtained: Yes Post Reduction X-Ray Results: reduced Splint Applied: Yes Patient Tolerated Procedure: Well Procedural Sedation Time of procedure: 11:52 Consent signed: Yes Time out performed: Yes Indication: fracture/dislocation reduction ASA Class: III Mallampati Airway Classification: Class III Preparation: night monitor applied, pulse oximeter, capnometry used, supplemental O2 applied, suction/airway equipment at bedside and IV secured IV Propofol dose (mg): 100 ED Sedation Level: Moderate (Concious) Patient Tolerated Procedure: Well Complications: hypoxia (baseline sleep apnea) Interventions: Airway repositioned Additional Comments: Total time of sedation 13 minutes Course Orders Ordered: ED Orders 10/01/24 10:09 XR hip w pel RT 2V Stat 10/01/24 11:48 XR hip w pel RT 2V Stat Discontinued Medications Hydromorphone HCl (Hydromorphone 1 Mg Inj) 1 mg IV NOW ONE Stop: 10/01/24 10:12 Last Admin: 10/01/24 10:17 Dose: 1 mg Documented By: ES Hydromorphone HCl (Hydromorphone 1 Mg Inj) 1 mg IV NOW ONE Stop: 10/01/24 10:33 Last Admin: 10/01/24 10:44 Dose: 1 mg Documented By: ES Propofol (Propofol 200 Mg/20 Ml Vial) 200 mg IV NOW ONE Stop: 10/01/24 10:59 Vital Signs Vital signs: Vital Signs - 8 hr 10/01/24 10:01 10/01/24 10:02 10/01/24 10:03 Temperature 100.5 F H Pulse Rate 88 88 Respiratory Rate 19 Blood Pressure 134/63 134/63 Pulse Oximetry 92 93 Oxygen Delivery Method Room Air 10/01/24 10:03 10/01/24 10:30 10/01/24 10:30 Temperature Pulse Rate 88 84 Respiratory Rate 22 Blood Pressure 114/71 Pulse Oximetry 92 92 Oxygen Delivery Method 10/01/24 11:00 10/01/24 11:00 10/01/24 11:30 Temperature Pulse Rate 88 Respiratory Rate 19 Blood Pressure 120/60 123/67 Pulse Oximetry 91 Oxygen Delivery Method 10/01/24 11:30 Temperature Pulse Rate 85 Respiratory Rate 21 Blood Pressure Pulse Oximetry 95 Oxygen Delivery Method MDM - Extremity Injury (Lower) MDM Narrative Medical decision making narrative: 74-year-old woman 1 year post hip replacement right side bend forward and spontaneously dislocated her hip this morning. She did have a similar episode in May of this year with successful reduction. She is having a significant amount of pain that has been difficult to control. No other injuries Differential includes dislocation, fracture dislocation, disruption of prosthetic pieces X-rays confirm dislocated right femoral arthroplasty without periprosthetic fracture Patient was sedated using propofol With direct manipulation her hip was relocated Postreduction x-rays show relocated hip, no obvious periprosthetic fractures Patient was placed in a long-leg knee immobilizer, neurovascularly intact pre and post placement Once adequately recovered from her propofol sedation, pain has been almost essentially relieved, I have asked her to leave the long-leg immobilizer in place until she is seen by her orthopedic surgeon. Direct communication with her orthopedic surgeon regarding ER visit dislocation and relocation. No indication for additional workup or imaging and she is safe for discharge Discharge Plan Departure Patient Disposition: Home Clinical Impression: Dislocation, hip closed Qualifiers: Encounter type: initial encounter Laterality: right Qualified Code(s): S73.004A - Unspecified dislocation of right hip, initial encounter Instructions: DI for Hip Dislocation -- Adult Activity Restrictions/Additional Instructions: Thank you for coming in today We used propofol sedation and were able to put your right hip back into place. I have sent a message to Dr. Nazario to let him know that you were here, what we did. Please continue to use the knee immobilizer, if you can not bend her knee, you can not dislocate you are hip again. It is okay to use Tylenol as needed, I am glad that you are not having any pain postprocedure. If you find that you are getting worse or develop any new symptoms, please feel free to return to the emergency department for further evaluation. Prescriptions: No Action cholecalciferol (vitamin D3) [Vitamin D3] 2,000 UNIT tablet 1 tab PO QDAY Qty: 0 warfarin 5 mg tablet 5 mg PO 3XW Qty: 36 3RF Protocol: Dose Management Condition: Friday Dose/Route: 2.5 mg Instruction: 1 x 2.5 mg tablet Condition: Friday Dose/Route: 5 mg Instruction: 1 x 5 mg tablet Condition: Friday Dose/Route: 2.5 mg Instruction: 1 x 2.5 mg tablet Condition: Friday Dose/Route: 2.5 mg Instruction: 1 x 2.5 mg tablet Condition: Dose/Route: 5 mg Instruction: 1 x 5 mg tablet Condition: Friday Dose/Route: 2.5 mg Instruction: 1 x 2.5 mg tablet Condition: Friday Dose/Route: 5 mg Instruction: 1 x 5 mg tablet Protocol Text: Adjustment Start Date: Friday08/16/24 INR Value: 2.3 INR Date: 08/16/24 Recheck Date: 10/04/24 Rx Instructions: Take 1 tablet (5mg) total on Friday, and Friday; or as directed. semaglutide 2 mg/dose (8 mg/3 mL) pen injector 2 mg SUBCUT QWEEK Qty: 9 3RF diltiazem HCl 300 mg capsule,extended release 24hr 300 mg PO QDAY Qty: 90 1RF metformin 500 mg tablet extended release 24 hr 500 mg PO DAILY Qty: 90 1RF telmisartan 40 mg tablet 40 mg PO QDAY Qty: 90 1RF omeprazole 20 mg capsule,delayed release(DR/EC) 20 mg PO DAILY Qty: 90 3RF rosuvastatin 40 mg tablet 40 mg PO DAILY Qty: 90 1RF metoprolol succinate 50 mg tablet extended release 24 hr 50 mg PO BID Qty: 180 1RF metoprolol succinate 100 mg tablet extended release 24 hr 100 mg PO BID Qty: 180 1RF allopurinol 300 mg tablet 300 mg PO DAILY Qty: 30 0RF warfarin 2.5 mg tablet 2.5 mg PO 4XW Qty: 48 3RF Protocol: Dose Management Condition: Friday Dose/Route: 2.5 mg Instruction: 1 x 2.5 mg tablet Condition: Friday Dose/Route: 5 mg Instruction: 1 x 5 mg tablet Condition: Friday Dose/Route: 2.5 mg Instruction: 1 x 2.5 mg tablet Condition: Friday Dose/Route: 2.5 mg Instruction: 1 x 2.5 mg tablet Condition: Dose/Route: 5 mg Instruction: 1 x 5 mg tablet Condition: Friday Dose/Route: 2.5 mg Instruction: 1 x 2.5 mg tablet Condition: Friday Dose/Route: 5 mg Instruction: 1 x 5 mg tablet Protocol Text: Adjustment Start Date: Friday08/16/24 INR Value: 2.3 INR Date: 08/16/24 Recheck Date: 10/04/24 Rx Instructions: Take 1 tablet (2.5mg) total on Friday, Friday, Friday and Friday; or as directed. hydrochlorothiazide 25 mg tablet 25 mg PO QDAY Qty: 90 1RF buspirone 15 mg tablet 15 mg PO QDAY Qty: 90 1RF magnesium chelate, malate 125 mg magnesium capsule PO urolithin A PO coenzyme Q10 100 mg capsule 100 mg PO DAILY progesterone micronized 100 mg capsule 100 mg PO BEDTIME Qty: 90 1RF Rx Instructions: Take 1 cap at night. If noticing breast soreness or fluid retention, increase to 2 caps at night. testosterone 50 mg/5 gram (1 %) gel 0.14 tube transdermal QAM Qty: 150 0RF hydrocodone-acetaminophen 5-325 mg tablet 1 tab PO Q4-6H PRN (Reason: pain) Qty: 10 0RF Referrals: Jennifer Avilez DO [Primary Care Provider, Medical] Stand Alone Forms: Patient Portal/API
--- NOTE | 2024-10-01 11:48 | DI.RAD.S_ITS ---
PROCEDURE: XR PELVIS 1-2V INDICATIONS: Post reduction of right hip TECHNIQUE: 1 view(s) of the pelvis acquired. COMPARISON: [facility], CR, XR HIP W PEL RT 2V, 10/01/2024, 10:26. FINDINGS: Bones: Satisfactory reduction of previously dislocated total right hip arthroplasty. No evidence of hardware failure or loosening. No acute fracture or dislocation. No suspicious bony lesions. Soft tissues: Visualized bowel gas pattern is normal. No suspicious soft tissue calcifications. IMPRESSION: Successful reduction previously dislocated total right hip arthroplasty. Dictated by: Lonnie Hernandez M.D. on 10/01/2024 at 12:15 Approved by: Lonnie Hernandez M.D. on 10/01/2024 at 12:16
--- NOTE | 2024-10-01 12:02 | RT ---
At bedside for PRS reduction Hip, bag mask unit and suction on and functional at [facility]. Pt was given Jaw Thrust and yuriy well. Etco2 35, sao2 93 on 5 lm nc. Pt yuriy well, o2 titrated down to 2 lpm nc and pt is awake. Released by Rn with no distress noted.
--- NOTE | 2024-10-01 12:07 | PC.NURSE ---
Pt complains of severe right hip pain after bending over to pick something up at home this morning. PNS and pulses intact. Unable to perform ROM due to severe pain. Pt able to move lower leg and foot.
[2024-10-01] MEDS: propofoL 200 MG/20 ML VIAL IV (12:23)
== END 2024-10-01 13:57 | disposition home or self-care (01) ==
PROVIDERS: Emergency Provider Emergency Medicine; PCP Family Medicine
DX: T84.020A Dislocation of internal right hip prosthesis, initial encounter (principal); Y79.2 Prosthetic and other implants, materials and accessory orthopedic devices associated with adverse incidents
CPT/HCPCS: 27265; 72170; 73502; 96374; 99152; 99284; 99285; J1171; J2704

== ENCOUNTER → 2024-11-08 09:48 | Outpatient (CLI) | payer MEDICARE, SELFPAY ==
[2024-11-08 11:01] LABS: Hemoglobin A1C% w Est Avg Glu 5.2 % (4.0-6.0)
[2024-11-08 11:16] LABS: Alanine Aminotransferase 28 IU/L (<35); Albumin 4.7 g/dL (3.5-5.0); Albumin Globulin Ratio 1.6 (1.0-2.8); Alkaline Phosphatase 78 U/L (38-126); Blood Urea Nitrogen 21 mg/dL (7-17); Calcium 10.0 mg/dL (8.4-10.2); Carbon Dioxide 29 mmol/L (22-32); Chloride 97 mmol/L (98-107); Cholesterol 139 mg/dL (140-199); Estimated Glomerular Filt Rate > 60 mL/min (>60); Globulin 3.0 g/dL (1.7-4.1); Glucose 99 mg/dL (70-99); HDL Cholesterol 44 mg/dL (40-60); HEMOLYSIS < 15 (0-50); Potassium 4.3 mmol/L (3.4-5.1); Sodium 137 mmol/L (137-145); Total Protein 7.7 g/dL (6.3-8.2); Triglycerides 107 mg/dL (35-150)
[2024-11-09 03:40] LABS: CRP, High Sensitivity 2.37 mg/L (0.00-3.00)
== END ==
PROVIDERS: PCP Family Medicine; Referring Provider Family Medicine; Visit Provider Family Medicine
DX: Z79.01 Long term (current) use of anticoagulants (principal); E66.01 Morbid (severe) obesity due to excess calories; I48.91 Unspecified atrial fibrillation; Z51.81 Encounter for therapeutic drug level monitoring
CPT/HCPCS: 36415; 80053; 80061; 83036; 86140

== ENCOUNTER → 2025-01-20 16:14 | Outpatient (CLI) | payer MEDICARE, SELFPAY ==
--- NOTE | 2025-01-20 16:16 | DI.MRI.S_ITS ---
PROCEDURE: MR HIP RT WO CON INDICATIONS: MARS PROTOCOL- R hip TECHNIQUE: Noncontrast coronal T1 fast spin echo and STIR through the bony pelvis. Coronal and axial STIR, sagittal T1 fast spin echo, and oblique axial STIR through the hip. COMPARISON: [facility], CR, XR HIP 2 VIEWS RIGHT, 05/16/2024, 9:15. [facility], CR, XR HIP W PEL RT 2V, 10/01/2024, 10:26. [facility], CR, XR PELVIS 1-2V, 10/01/2024, 11:48. [facility], CR, ORTHO-XR HIP RT 2V, 01/18/2025, 11:18. FINDINGS: Image quality: Metal artifact is seen related to right hip arthroplasty including areas of signal void, signal pile-up, and geometric distortion despite the use of metal artifact reduction techniques. Diagnostic information is obtained. Bones and joints: Postsurgical changes from right hip arthroplasty with expected metal artifact. A small amount of fluid is seen posterior to the hip tracking lateral to the femur into the subcutaneous tissues. No acute osseous edema is seen. The inferior tip of the femoral arthroplasty component is excluded from the field of view of the exam. No significant joint effusion or periarticular mass is seen. No displaced acetabular liner is seen in this patient with history of prosthesis dislocations. Bone marrow of the pelvic ring and left proximal femur show normal signal throughout. No intraosseous lesions or fractures. No avascular necrosis of the femoral head. Mild degenerative changes at the sacroiliac joints bilaterally. Multilevel degenerative disc disease and facet hypertrophy in the included spine with suspected spinal canal narrowing, not well evaluated on this exam. Tendons and ligaments: Distal right gluteus medius and minimus tendinosis. Suspected focal low-grade partial intrasubstance tearing at the posterior gluteus medius insertion onto the greater trochanter. The proximal iliotibial band appears intact. The iliopsoas tendon appears intact, without adjacent bursal fluid collections. Moderate grade partial tearing of the right hamstring tendon at the origin superimposed on chronic tendinosis. There is also suspected moderate grade partial tearing of the left proximal hamstring tendon on large [id number] images. The tendons for the direct and indirect heads of the rectus femoris muscle appear intact. Soft tissues: There is generalized fatty infiltration of the visualized musculature that is more prominent at the gluteus medius and minimus muscles bilaterally. Quadratus femoris muscle demonstrates no internal edema to suggest ischiofemoral impingement. The proximal sciatic neurovascular bundle appears normal adjacent to the hamstring tendons. Uterus with multiple fibroids. No acute abnormality is seen in the pelvis. IMPRESSION: 1. Postsurgical changes from right total hip arthroplasty with associated metal artifact. A fluid collection posterior lateral to the hip may represent a postoperative seroma or chronic hematoma versus chronic capsular tearing and extravasation of joint fluid. No acute osseous edema. No periarticular mass. 2. Moderate grade chronic partial tearing of the bilateral hamstring tendons at the origins. 3. Mild distal right gluteus medius and minimus tendinosis with suspected low- grade partial intrasubstance tearing of the gluteus medius tendon at the distal insertion. 4. Multilevel degenerative changes in the included spine with suspected spinal canal narrowing. Mild bilateral sacroiliac joint osteoarthrosis. 5. Multiple uterine fibroids. Approved by: Jero Hernandez M.D. on 01/21/2025 at 8:40
== END ==
PROVIDERS: PCP Family Medicine; Referring Provider Orthopaedic Surgery Adult Reconstructive Orthopaedic Surgery; Visit Provider Orthopaedic Surgery Adult Reconstructive Orthopaedic Surgery
DX: S76.011A Strain of muscle, fascia and tendon of right hip, initial encounter (principal); S76.311D Strain of muscle, fascia and tendon of the posterior muscle group at thigh level, right thigh, subsequent encounter; M16.11 Unilateral primary osteoarthritis, right hip; M46.1 Sacroiliitis, not elsewhere classified; D25.9 Leiomyoma of uterus, unspecified; Z96.641 Presence of right artificial hip joint
CPT/HCPCS: 73721